=== PATIENT | male | born 1945 | race Hispanic/Latino ===

== ENCOUNTER 2021-09-21 11:32 | Inpatient (IN) | payer MEDICARE, OTHER ==
[2021-09-21 12:16] LABS: #Eosinphils 0.1 thou/uL (0.0-0.7); #Lymphocytes 2.4 thou/uL (1.20-3.40); #Monocytes 0.5 thou/uL (0.11-0.59); #Neutrophils 2.9 thou/uL (1.40-6.50); %Basophils 0.8 % (0.0-1.0); %Eosinophils 2.5 % (0.0-10.0); %Lymphocytes 39.8 % (21.0-51.0); %Monocytes 7.7 % (0.0-10.0); %Neutrophils 49.3 % (42.0-75.0); Mean Corpuscular HGB CONC 34.8 g/dL (32.0-36.0); Mean Corpuscular Hemoglobin 34.4 pg (27.0-31.0); Mean Platelet Volume 6.7 fL (7.4-10.4); Platelet Count 156 thou/uL (130-400); RBC Distribution Width 13.5 % (11.5-14.5); Red Blood Cell (RBC) Count 3.48 mill/uL (4.70-6.10); White Blood Cell (WBC) Count 5.9 thou/uL (4.8-10.8)
[2021-09-21 12:38] LABS: ALT (SGPT) 28 U/L (8-55); AST (SGOT) 26 U/L (5-34); Albumin 3.6 g/dL (3.4-4.8); Alkaline Phosphatase 64 U/L (40-110); Anion Gap 13 mmol/L (10-20); BUN (Urea Nitrogen) 29 mg/dL (8.4-25.7); Bilirubin, Total 0.5 mg/dL (0.2-1.2); Calc. Creatinine Clearance 0 mL/min (70-130); Calcium 8.5 mg/dL (7.8-10.44); Carbon Dioxide 21 mmol/L (23-31); Chloride 107 mmol/L (98-107); Globulin 2.7 g/dL (2.4-3.5); Glucose 104 mg/dL (83-110); Potassium 3.8 mmol/L (3.5-5.1); Protein, Total 6.3 g/dL (5.8-8.1); Sodium 137 mmol/L (136-145)
[2021-09-21] MEDS ORDERED: Meclizine HCl 25 MG TAB ONE (13:07)
[2021-09-21] MEDS ORDERED: Diazepam 5 MG TAB ONE (15:58)
[2021-09-21] MEDS ORDERED: Aspirin 325 MG TAB ONE (15:58)
[2021-09-21 17:30] LABS: Troponin I Less than 0.010 ng/mL (< 0.028)
[2021-09-21] MEDS ORDERED: Dextrose 50% Abboject 50 ML SYRINGE SLOW IVP PRN (19:17)
[2021-09-21] MEDS ORDERED: Dextrose 5% in Water 1,000 ML IV PRN (19:17)
[2021-09-21] MEDS ORDERED: HumaLOG 300 UNITS/3 ML VIAL SC PRN (19:17)
[2021-09-21] MEDS ORDERED: Ondansetron ODT 4 MG TAB PO PRN (19:18)
[2021-09-21] MEDS ORDERED: Acetaminophen 325 MG TAB PO PRN (19:18)
[2021-09-21] MEDS ORDERED: Ondansetron PF 4 MG/2 ML Vial IVP PRN (19:18)
[2021-09-21] MEDS ORDERED: Senokot S 8.6-50 MG TAB PO PRN (19:18)
[2021-09-21 20:53] LABS: Troponin I Less than 0.010 ng/mL (< 0.028)
[2021-09-21] MEDS: Sodium Chloride 0.9% 1,000 ML IV SCH (23:42)
[2021-09-22 01:28] LABS: SARS-CoV-2 NAA Rapid Test DETECTED (NotDetected)
[2021-09-22 02:19] LABS: Bacteria/HPF None Seen HPF (None Seen); Bilirubin Negative (Negative); Blood, Urine Negative (Negative); Clarity Clear (Clear); Glucose, Urine (Dipstick) 500 mg/dL (Negative); Ketone, Urine Negative (Negative); Leukocyte Negative Leu/uL (Negative); Nitrite Negative (Negative); Protein, Urine (Dipstick) 10 mg/dL (Neg-Trace); RBC/HPF 0-3 HPF (0-3); Specific Gravity, Urine 1.018 (1.002-1.036); Squamous Epithelial None Seen HPF (0-3); Urobilinogen Normal mg/dL (Less than 2); WBC/HPF 0-3 HPF (0-3); pH, Urine 6.5 (5.0-9.0)
[2021-09-22 06:13] LABS: #Basophils 0.1 thou/uL (0.0-0.2); #Eosinphils 0.2 thou/uL (0.0-0.7); #Lymphocytes 2.1 thou/uL (1.20-3.40); #Monocytes 0.5 thou/uL (0.11-0.59); #Neutrophils 2.1 thou/uL (1.40-6.50); %Basophils 1.3 % (0.0-1.0); %Eosinophils 3.6 % (0.0-10.0); %Monocytes 9.6 % (0.0-10.0); %Neutrophils 43.4 % (42.0-75.0); Hemoglobin 11.9 g/dL (14.0-18.0); Mean Corpuscular HGB CONC 33.5 g/dL (32.0-36.0); Mean Corpuscular Hemoglobin 33.7 pg (27.0-31.0); Mean Platelet Volume 6.6 fL (7.4-10.4); Platelet Count 141 thou/uL (130-400); RBC Distribution Width 13.6 % (11.5-14.5); Red Blood Cell (RBC) Count 3.54 mill/uL (4.70-6.10); White Blood Cell (WBC) Count 4.9 thou/uL (4.8-10.8)
[2021-09-22 06:24] LABS: Hemoglobin A1c 5.8 % (4.0-6.0)
[2021-09-22 06:41] LABS: Anion Gap 13 mmol/L (10-20); BUN (Urea Nitrogen) 26 mg/dL (8.4-25.7); Calc. Creatinine Clearance 64 mL/min (70-130); Calcium 8.4 mg/dL (7.8-10.44); Carbon Dioxide 22 mmol/L (23-31); Cardiac Risk 5.5 (Less than 4.5); Chloride 108 mmol/L (98-107); Cholesterol 149 mg/dl (< 200 Desired); Glucose 62 mg/dL (83-110); HDL Cholesterol 27 mg/dL (>60 Neg Risk); LDL Cholesterol, Calculated 94 mg/dL; Potassium 3.9 mmol/L (3.5-5.1); Sodium 139 mmol/L (136-145); Triglycerides 138 mg/dL (Less than 150)
[2021-09-22 06:57] LABS: Ferritin 222.61 ng/mL (22-322); Thyroid Stimulating Hormone 0.5144 uIU/mL (0.35-4.94)
[2021-09-22] MEDS: Aspirin 81 mg Enteric Coated Tablet PO SCH (08:58)
[2021-09-22] MEDS: Losartan 25 MG TAB PO SCH (08:58)
[2021-09-22] MEDS: Flecainide 50 MG TAB PO SCH ×2 (08:59→21:11)
[2021-09-22] MEDS: Amlodipine 5 MG TAB PO SCH (08:59)
[2021-09-22] MEDS: Ascorbic Acid 500 mg Chewable Tablet PO SCH (08:59)
[2021-09-22] MEDS: Magnesium Oxide 400 MG TAB PO SCH (08:59)
[2021-09-22] MEDS: Zinc Sulfate 220 MG CAP PO SCH (08:59)
[2021-09-22] MEDS ORDERED: Iopamidol 370 76% 100 ML VIAL ONE (11:41)
[2021-09-22] MEDS: HumaLOG 300 UNITS/3 ML VIAL SC PRN (17:25)
[2021-09-22] MEDS: Sodium Chloride 0.9% 1,000 ML IV SCH (18:29)
[2021-09-22] MEDS: Atorvastatin Calcium 40 MG TAB PO SCH (21:11)
[2021-09-23 06:42] LABS: #Eosinphils 0.2 thou/uL (0.0-0.7); #Lymphocytes 2.3 thou/uL (1.20-3.40); #Monocytes 0.5 thou/uL (0.11-0.59); #Neutrophils 2.3 thou/uL (1.40-6.50); %Basophils 0.9 % (0.0-1.0); %Eosinophils 4.3 % (0.0-10.0); %Lymphocytes 42.4 % (21.0-51.0); %Monocytes 8.8 % (0.0-10.0); %Neutrophils 43.7 % (42.0-75.0); Hemoglobin 12.4 g/dL (14.0-18.0); Mean Corpuscular Hemoglobin 34.3 pg (27.0-31.0); Mean Platelet Volume 7.1 fL (7.4-10.4); Platelet Count 145 thou/uL (130-400); RBC Distribution Width 13.4 % (11.5-14.5); Red Blood Cell (RBC) Count 3.62 mill/uL (4.70-6.10); White Blood Cell (WBC) Count 5.4 thou/uL (4.8-10.8)
[2021-09-23 07:03] LABS: BUN (Urea Nitrogen) 23 mg/dL (8.4-25.7); Calc. Creatinine Clearance 56 mL/min (70-130); Calcium 8.8 mg/dL (7.8-10.44); Carbon Dioxide 22 mmol/L (23-31); Glucose 133 mg/dL (83-110)
[2021-09-23 07:12] LABS: Anion Gap 13 mmol/L (10-20); Chloride 108 mmol/L (98-107); Potassium 4.3 mmol/L (3.5-5.1); Sodium 139 mmol/L (136-145)
[2021-09-23] MEDS: Zinc Sulfate 220 MG CAP PO SCH (08:00)
[2021-09-23] MEDS: Amlodipine 5 MG TAB PO SCH (08:00)
[2021-09-23] MEDS: Losartan 25 MG TAB PO SCH (08:00)
[2021-09-23] MEDS: Flecainide 50 MG TAB PO SCH ×2 (08:00→19:53)
[2021-09-23] MEDS: Magnesium Oxide 400 MG TAB PO SCH (08:00)
[2021-09-23] MEDS: Ascorbic Acid 500 mg Chewable Tablet PO SCH (08:00)
[2021-09-23] MEDS: Aspirin 81 mg Enteric Coated Tablet PO SCH (08:00)
[2021-09-23 09:12] LABS: SARS-CoV-2 PCR by NAA Not Detected (NotDetected)
[2021-09-23] MEDS: HumaLOG 300 UNITS/3 ML VIAL SC PRN ×2 (12:09→17:55)
[2021-09-23] MEDS ORDERED: Magnevist 469MG/ML 20 ML VIAL ONE (12:12)
[2021-09-23] MEDS ORDERED: Clopidogrel Bisulfate 75 MG TAB PO SCH (16:15)
[2021-09-23] MEDS: Atorvastatin Calcium 40 MG TAB PO SCH (19:53)
[2021-09-24] MEDS ORDERED: HYDROmorphone 2 MG/ML VIAL ONE (06:52)
[2021-09-24] MEDS ORDERED: Fentanyl 100 MCG/2 ML VIAL ONE ×2 (06:52→10:44)
[2021-09-24] MEDS ORDERED: Nitroglycerin 50 MG/250 ML BOT 250 ML ONE (06:53)
[2021-09-24] MEDS ORDERED: Phenylephrine 10 MG/ML VIAL ONE (06:53)
[2021-09-24] MEDS ORDERED: Sodium Chloride 0.9% 10 ML ONE (06:53)
[2021-09-24 08:24] VITALS: BP 128/55
[2021-09-24] MEDS ORDERED: Heparin 5,000 UNITS/ML VIAL ONE (08:43)
[2021-09-24] MEDS ORDERED: Bupivacaine 0.25% HCL 30 ML VIAL ONE (08:43)
[2021-09-24] MEDS ORDERED: Protamine Sulfate 50 MG/5 ML VIAL ONE (08:43)
[2021-09-24] MEDS ORDERED: Clopidogrel Bisulfate 75 MG TAB PO SCH (09:00)
[2021-09-24] MEDS: Amlodipine 5 MG TAB PO SCH (09:08)
[2021-09-24] MEDS: Ascorbic Acid 500 mg Chewable Tablet PO SCH (09:08)
[2021-09-24] MEDS: Zinc Sulfate 220 MG CAP PO SCH (09:08)
[2021-09-24] MEDS: Flecainide 50 MG TAB PO SCH ×2 (09:08→20:31)
[2021-09-24] MEDS: Magnesium Oxide 400 MG TAB PO SCH (09:08)
[2021-09-24] MEDS: Aspirin 81 mg Enteric Coated Tablet PO SCH (09:09)
[2021-09-24] MEDS: Losartan 25 MG TAB PO SCH (09:09)
[2021-09-24] MEDS ORDERED: Famotidine/PF 20 mg/2ml Vial ONE (10:44)
[2021-09-24] MEDS ORDERED: EPINEPHrine 1 MG/ML AMP ONE (10:44)
[2021-09-24] MEDS ORDERED: SUGAMMADEX SODIUM 200 MG/2 ML VIAL ONE (11:01)
[2021-09-24] MEDS ORDERED: Lidocaine 1% PF 5 ML VIAL ONE (11:27)
[2021-09-24] MEDS ORDERED: PHENYLEPHRINE-NS 100 MCG/ML 10 ML SYRINGE ONE (11:27)
[2021-09-24] MEDS ORDERED: PROPOFOL 200 MG/20 ML VIAL ONE (11:27)
[2021-09-24] MEDS ORDERED: Ketorolac Tromethamine 30 MG/ML VIAL ONE (11:27)
[2021-09-24] MEDS ORDERED: Metoclopramide HCl 10 MG/2 ML VIAL ONE (11:27)
[2021-09-24] MEDS ORDERED: Ondansetron PF 4 MG/2 ML Vial ONE (11:27)
[2021-09-24] MEDS ORDERED: Rocuronium Bromide 10 MG/ML (10ML VIAL) ONE (11:27)
[2021-09-24] MEDS ORDERED: Heparin 10,000 UNITS/ 10 ML VIAL ONE (12:50)
[2021-09-24] MEDS ORDERED: Ondansetron HCl/PF 4 MG/2 ML Vial IVP PRN (13:29)
[2021-09-24] MEDS ORDERED: Promethazine HCl 25 MG/ML VIAL IM PRN ×2 (13:29→14:18)
[2021-09-24] MEDS ORDERED: Promethazine HCl 25 MG/ML VIAL IVPB PRN (13:29)
[2021-09-24] MEDS ORDERED: Acetaminophen 325 MG TAB PO PRN (14:18)
[2021-09-24] MEDS ORDERED: traMADol HCl 50 MG TAB PO PRN (14:18)
[2021-09-24] MEDS ORDERED: Insulin Regular 300 UNITS/3 ML VIAL SC PRN (14:18)
[2021-09-24] MEDS ORDERED: Fentanyl 100 MCG/2 ML VIAL SLOW IVP PRN ×2 (14:18)
[2021-09-24] MEDS ORDERED: niCARdipine 25 MG in Sodium Chloride 0.9% 250 ML 250 ML IVPB PRN (14:18)
[2021-09-24] MEDS ORDERED: Ondansetron PF 4 MG/2 ML Vial IVP PRN (14:18)
[2021-09-24] MEDS: Sodium Chloride 0.9% 1,000 ML IV SCH (16:50)
[2021-09-24] MEDS: Atorvastatin Calcium 40 MG TAB PO SCH (20:31)
[2021-09-24] MEDS: ceFAZolin 2 GM/Dextrose 50 ML 2 GM in Premix Bag 1 BAG IVPB SCH (20:31)
[2021-09-25] MEDS: Sodium Chloride 0.9% 1,000 ML IV SCH (02:16)
[2021-09-25] MEDS: ceFAZolin 2 GM/Dextrose 50 ML 2 GM in Premix Bag 1 BAG IVPB SCH (04:44)
[2021-09-25 05:46] VITALS: BMI 31.1
[2021-09-25 07:32] VITALS: TEMP 97.6
== END 2021-09-25 07:48 | disposition home or self-care (01) | DRG 37 ==
LOC: ERS 11:32 → NEURO 16:33 → OBSVTOIN 09-22 17:13 → SURG A 09-24 11:21 → CCU 09-24 14:46
PROVIDERS: ADMIT Internal Medicine; ATTEND Internal Medicine
PROC: 8E0ZXY6 Isolation (ICD-10-PCS; 2021-09-22)
PROC: 03CL0ZZ Extirpation of Matter from Left Internal Carotid Artery, Open Approach (ICD-10-PCS; principal; 2021-09-24)
PROC: 03UL0KZ Supplement Left Internal Carotid Artery with Nonautologous Tissue Substitute, Open Approach (ICD-10-PCS; 2021-09-24)
PROC: 3E033XZ Introduction of Vasopressor into Peripheral Vein, Percutaneous Approach (ICD-10-PCS; 2021-09-24)
DX: I65.22 Occlusion and stenosis of left carotid artery (principal); U07.1 COVID-19; I48.20 Chronic atrial fibrillation, unspecified; N17.9 Acute kidney failure, unspecified; I10 Essential (primary) hypertension; I25.10 Atherosclerotic heart disease of native coronary artery without angina pectoris; E78.5 Hyperlipidemia, unspecified; E11.9 Type 2 diabetes mellitus without complications; E29.1 Testicular hypofunction; D50.9 Iron deficiency anemia, unspecified; E78.00 Pure hypercholesterolemia, unspecified; I70.8 Atherosclerosis of other arteries; Z79.4 Long term (current) use of insulin; Z88.8 Allergy status to other drugs, medicaments and biological substances; Z95.5 Presence of coronary angioplasty implant and graft; Z79.82 Long term (current) use of aspirin; Z79.899 Other long term (current) drug therapy
CPT/HCPCS: 36415; 36416; 70450; 70496; 70498; 70549; 70551; 76000; 80048; 80053; 80061; 81001; 82607; 82728; 82746; 83036; 83735; 84443; 84484; 85025; 86140; 93005; 93306; 93880; 94760; 96374; A9579; C1768; C1876; G0378; J0171; J0690; J1170; J1644; J1815; J1885; J2370; J2405; J2704; J2720; J2765; J3010; J3490; J7050; Q9967; S0020; S0028; U0002; U0003; U0005

== ENCOUNTER 2022-07-02 09:45 | Outpatient (CLI) | payer OTHER | END 2022-07-02 09:46 | disposition home or self-care (01) | LOC: ULT 09:45 | PROVIDERS: ATTEND Family Medicine | DX: Z13.6 Encounter for screening for cardiovascular disorders (principal); Z87.891 Personal history of nicotine dependence | CPT/HCPCS: 76775 ==

== ENCOUNTER 2022-09-23 10:40 | Outpatient (CLI) | payer OTHER | END 2022-09-23 10:41 | disposition home or self-care (01) | LOC: MRI 10:40 | PROVIDERS: ATTEND Family Medicine | DX: M23.51 Chronic instability of knee, right knee (principal); M23.8X1 Other internal derangements of right knee; S83.241A Other tear of medial meniscus, current injury, right knee, initial encounter; M25.461 Effusion, right knee; M22.8X1 Other disorders of patella, right knee ==

== ENCOUNTER 2022-11-11 07:56 | Outpatient (CLI) | payer OTHER | END 2022-11-11 07:57 | disposition home or self-care (01) | LOC: LABBT 07:56 | PROVIDERS: ATTEND Thoracic Surgery (Cardiothoracic Vascular Surgery) | DX: Z01.818 Encounter for other preprocedural examination (principal); I25.10 Atherosclerotic heart disease of native coronary artery without angina pectoris; Z95.1 Presence of aortocoronary bypass graft | CPT/HCPCS: 80048; 85027; 86850; 86900; 86901; 93005; 93010 ==

== ENCOUNTER 2022-11-11 08:00 | Inpatient (IN) | payer OTHER ==
[2022-11-11 09:09] LABS: Hemoglobin 15.5 g/dL (13.5-17.5); Mean Corpuscular Hemoglobin 31.6 pg (27.0-33.0); Mean Corpuscular Volume 92.9 fl (81.2-95.1); Platelet Count 267 10x3/uL (150-450); RBC Distribution Width 14.1 % (11.5-14.5); Red Blood Cell (RBC) Count 4.91 10x6/uL (4.32-5.72); White Blood Cell (WBC) Count 6.6 10x3/uL (3.5-10.5)
[2022-11-11 09:39] LABS: Anion Gap 16 mmol/L (10-20); BUN (Urea Nitrogen) 26 mg/dL (8.4-25.7); Calc. Creatinine Clearance 0 mL/min (70-130); Calcium 8.3 mg/dL (7.8-10.44); Carbon Dioxide 24 mmol/L (23-31); Chloride 100 mmol/L (98-107); Estimated GFR 42; Glucose 91 mg/dL (83-110); Potassium 4.5 mmol/L (3.5-5.1); Sodium 135 mmol/L (136-145)
[2022-11-13] MEDS ORDERED: Midazolam HCl 5 mg/5 ml Vial ONE ×2 (06:30→09:33)
[2022-11-13] MEDS ORDERED: Fentanyl 250 MCG/5 ML VIAL ONE (06:30)
[2022-11-13] MEDS ORDERED: Albumin 5% 500 ML ONE ×2 (06:32→11:39)
[2022-11-13] MEDS ORDERED: Heparin 10,000 UNITS/1 ML VIAL 30,000 UNITS in Sodium Chloride 0.9% 1,000 ML FS SCH (06:45)
[2022-11-13] MEDS ORDERED: Lidocaine 1% MPF 2 ML VIAL ONE (06:56)
[2022-11-13 07:13] LABS: SARS-CoV-2 NAA Rapid Test Not Detected (NotDetected)
[2022-11-13] MEDS ORDERED: Sodium Chloride 0.9% 100 ML ONE (07:18)
[2022-11-13] MEDS ORDERED: CEFAZOLIN 2 GM VIAL ONE (07:18)
[2022-11-13] MEDS ORDERED: Papaverine 60 MG/2 ML VIAL ONE (07:28)
[2022-11-13] MEDS ORDERED: DOPamine 400 MG/10 ML VIAL ONE (07:28)
[2022-11-13] MEDS ORDERED: Vecuronium 10 MG VIAL ONE (07:28)
[2022-11-13] MEDS ORDERED: Sodium Bicarb 50 MEQ/50 ML VIAL ONE (07:28)
[2022-11-13] MEDS ORDERED: Lidocaine 2% PF 100 mg/5 ml Syringe ONE (07:28)
[2022-11-13] MEDS ORDERED: Protamine Sulfate 250 MG/25 ML VIAL ONE (07:28)
[2022-11-13] MEDS ORDERED: Aminocaproic Acid 5 GM/20 ML VIAL ONE (07:28)
[2022-11-13] MEDS ORDERED: Heparin 30,000 units/30 ml VIAL ONE (07:28)
[2022-11-13] MEDS ORDERED: Potassium Chloride 60 MEQ/30 ML VIAL ONE (07:28)
[2022-11-13] MEDS ORDERED: Heparin 5,000 UNITS/ML VIAL ONE (07:28)
[2022-11-13] MEDS ORDERED: Vancomycin 1 GM VIAL ONE (07:28)
[2022-11-13] MEDS ORDERED: Cardioplegic Soln 1,000 ML BAG ONE (07:28)
[2022-11-13] MEDS ORDERED: Calcium Chloride 1 GM/10 ML Abboject SYRINGE ONE (07:28)
[2022-11-13] MEDS ORDERED: Thrombin 5000 UNITS/5 ML VIAL ONE (07:28)
[2022-11-13] MEDS ORDERED: Magnesium 5 GM/10 ML VIAL ONE (07:28)
[2022-11-13] MEDS ORDERED: Mannitol 12.5 GM/50 ML ONE (07:28)
[2022-11-13] MEDS ORDERED: Midazolam HCl 2 mg/2 ml Vial ONE (09:32)
[2022-11-13] MEDS ORDERED: Phenylephrine 10 MG/ML VIAL ONE (09:40)
[2022-11-13] MEDS ORDERED: PHENYLEPHRINE-NS 100 MCG/ML 10 ML SYRINGE ONE (09:41)
[2022-11-13 11:37] LABS: Actual Bicarbonate (HCO3a) 20.3 mEq/L (22-28); Base Excess (BEa) -3.2 mEq/L (-2.0 to +3.0); CO2 Tension 31.9 mmHg (35.0-45.0); Calcium, Ionized (arterial) 1.11 mmol/L (1.12-1.30); Carboxyhemoglobin (COHb) 0.6 gm% (0.0-3.0); Hemoglobin (Hb) 13.1 g/dL (14.0-18.0); O2 Tension (PaO2), arterial 116.4 mmHg (> 70.0); Potassium - ABG Lab 5.31 mmol/L (3.70-5.30); pH, Arterial 7.42 (7.35-7.45)
[2022-11-13] MEDS ORDERED: Insulin Regular 300 UNITS/3 ML VIAL ONE (11:39)
[2022-11-13 11:40] LABS: ALV-art Gradient 200.225 mmHg (0-20); Puncture Site Arterial Line
[2022-11-13] MEDS ORDERED: Potassium Chloride 20 MEQ/100 ML PREMIX BAG IVPB PRN (11:48)
[2022-11-13] MEDS ORDERED: Ipratropium/Albuterol 3 ML NEB NEB PRN (11:48)
[2022-11-13] MEDS ORDERED: Hetastarch 6% 500 ML 500 ML IVPB PRN (11:48)
[2022-11-13] MEDS ORDERED: Post-Op Insulin Drip Protocol IVPB ONE (11:48)
[2022-11-13] MEDS ORDERED: Bisacodyl 10 MG SUPP PR PRN (11:48)
[2022-11-13] MEDS ORDERED: Bisacodyl 5 MG TAB PO PRN (11:48)
[2022-11-13] MEDS ORDERED: Morphine 2 MG/ML VIAL SLOW IVP PRN (11:48)
[2022-11-13] MEDS ORDERED: HYDROcodone/Acetaminophen 5/325 mg Tablet PO PRN (11:48)
[2022-11-13] MEDS ORDERED: Fentanyl 100 MCG/2 ML VIAL SLOW IVP PRN ×2 (11:48)
[2022-11-13] MEDS ORDERED: niCARdipine 25 MG in Sodium Chloride 0.9% 250 ML 250 ML IVPB PRN (11:48)
[2022-11-13] MEDS ORDERED: Mag-Al 1200 mg/1200 mg/30 ML UDCUP PO PRN (11:48)
[2022-11-13] MEDS ORDERED: Acetaminophen 325 MG TAB PO PRN (11:48)
[2022-11-13] MEDS ORDERED: NOREPINEPHRINE 8 MG/250 ML-D5W 250 ML IVPB PRN (11:48)
[2022-11-13] MEDS ORDERED: Guaifenesin DM 100-10/5 ML UDCUP PO PRN (11:48)
[2022-11-13] MEDS ORDERED: Ondansetron PF 4 MG/2 ML Vial IVP PRN (11:48)
[2022-11-13] MEDS ORDERED: hydrALAZINE 20 MG/ML VIAL SLOW IVP PRN (11:48)
[2022-11-13 11:58] LABS: #Eosinphils 0.1 thou/uL (0.0-0.7); #Lymphocytes 1.5 thou/uL (1.20-3.40); #Monocytes 0.7 thou/uL (0.11-0.59); #Neutrophils 8.1 thou/uL (1.40-6.50); %Basophils 0.3 % (0.0-1.0); %Eosinophils 1.2 % (0.0-10.0); %Lymphocytes 14.2 % (21.0-51.0); %Monocytes 6.5 % (0.0-10.0); %Neutrophils 77.8 % (42.0-75.0); Hemoglobin 12.6 g/dL (14.0-18.0); Mean Corpuscular HGB CONC 33.8 g/dL (32.0-36.0); Mean Corpuscular Hemoglobin 33.4 pg (27.0-31.0); Mean Corpuscular Volume 98.7 fl (78.0-98.0); Mean Platelet Volume 7.2 fL (7.4-10.4); Platelet Count 156 10x3/uL (130-400); RBC Distribution Width 13.1 % (11.5-14.5); Red Blood Cell (RBC) Count 3.76 mill/uL (4.70-6.10); White Blood Cell (WBC) Count 10.4 10x3/uL (4.8-10.8)
[2022-11-13] MEDS ORDERED: Insulin Regular 300 UNITS/3 ML VIAL SC PRN (12:00)
[2022-11-13] MEDS ORDERED: Dextrose 50% Abboject 50 ML SYRINGE SLOW IVP PRN (12:00)
[2022-11-13] MEDS ORDERED: HUMULIN R 100 UNITS in Sodium Chloride 0.9% 100 ML IVPB SCH (12:00)
[2022-11-13] MEDS ORDERED: Dextrose 5% in Water 1,000 ML IV PRN (12:00)
[2022-11-13] MEDS: Lactated Ringer's 1,000 ML IV SCH (12:03)
[2022-11-13] MEDS: Ketorolac Tromethamine 30 MG/ML VIAL IVP SCH ×3 (12:05→23:12)
[2022-11-13 12:09] LABS: INR-International Normal Ratio 1.5; PTT 33.5 sec (22.9-36.1); Prothrombin Time 18.4 sec (12.0-14.7)
[2022-11-13 12:15] LABS: Anion Gap 12 mmol/L (10-20); BUN (Urea Nitrogen) 30 mg/dL (8.4-25.7); Calc. Creatinine Clearance 44 mL/min (70-130); Calcium 7.7 mg/dL (7.8-10.44); Carbon Dioxide 18 mmol/L (23-31); Chloride 108 mmol/L (98-107); Estimated GFR 40; Glucose 184 mg/dL (83-110); Potassium 5.3 mmol/L (3.5-5.1); Sodium 133 mmol/L (136-145)
[2022-11-13] MEDS: CEFAZOLIN 2 GM in Sodium Chloride 0.9% 100 ML IVPB SCH ×2 (16:49→23:14)
[2022-11-13 17:34] LABS: Base Excess (BEa) -3.8 mEq/L (-2.0 to +3.0); CO2 Tension 37.4 mmHg (35.0-45.0); Calcium, Ionized (arterial) 1.12 mmol/L (1.12-1.30); Carboxyhemoglobin (COHb) 0.6 gm% (0.0-3.0); Hemoglobin (Hb) 13.5 g/dL (14.0-18.0); O2 Tension (PaO2), arterial 169.9 mmHg (> 70.0); Potassium - ABG Lab 3.67 mmol/L (3.70-5.30); Puncture Site Arterial Line; pH, Arterial 7.37 (7.35-7.45)
[2022-11-13 18:04] LABS: Potassium 3.8 mmol/L (3.5-5.1)
[2022-11-13] MEDS: Atorvastatin Calcium 20 MG TAB PO SCH (21:47)
[2022-11-13] MEDS: Famotidine/PF 20 mg/2ml Vial SLOW IVP SCH (21:47)
[2022-11-13] MEDS: HYDROcodone/Acetaminophen 5/325 mg Tablet PO PRN (22:26)
[2022-11-14 03:39] LABS: #Lymphocytes 0.9 thou/uL (1.20-3.40); #Monocytes 0.6 thou/uL (0.11-0.59); #Neutrophils 9.4 thou/uL (1.40-6.50); %Basophils 0.4 % (0.0-1.0); %Eosinophils 0.3 % (0.0-10.0); %Lymphocytes 8.3 % (21.0-51.0); %Monocytes 5.8 % (0.0-10.0); %Neutrophils 85.3 % (42.0-75.0); Hemoglobin 13.4 g/dL (14.0-18.0); Mean Corpuscular HGB CONC 33.2 g/dL (32.0-36.0); Mean Corpuscular Hemoglobin 32.9 pg (27.0-31.0); Mean Platelet Volume 6.9 fL (7.4-10.4); Platelet Count 153 10x3/uL (130-400); RBC Distribution Width 13.3 % (11.5-14.5); Red Blood Cell (RBC) Count 4.07 mill/uL (4.70-6.10)
[2022-11-14 04:02] LABS: Anion Gap 13 mmol/L (10-20); BUN (Urea Nitrogen) 22 mg/dL (8.4-25.7); Calc. Creatinine Clearance 63 mL/min (70-130); Carbon Dioxide 20 mmol/L (23-31); Chloride 109 mmol/L (98-107); Estimated GFR 62; Glucose 106 mg/dL (83-110); Potassium 5.3 mmol/L (3.5-5.1); Sodium 137 mmol/L (136-145)
[2022-11-14] MEDS: Ketorolac Tromethamine 30 MG/ML VIAL IVP SCH ×4 (06:12→23:53)
[2022-11-14] MEDS: Famotidine/PF 20 mg/2ml Vial SLOW IVP SCH (07:52)
[2022-11-14] MEDS: CEFAZOLIN 2 GM in Sodium Chloride 0.9% 100 ML IVPB SCH (07:52)
[2022-11-14] MEDS: Magnesium 2 GM/50 ML(in water) 2 GM in Premix Bag 1 BAG IVPB SCH (07:52)
[2022-11-14] MEDS: Aspirin 325 MG TAB PO SCH (07:53)
[2022-11-14] MEDS: Lactated Ringer's 1,000 ML IV SCH (07:53)
[2022-11-14] MEDS ORDERED: Dextrose 50% Abboject 50 ML SYRINGE SLOW IVP PRN (11:54)
[2022-11-14] MEDS ORDERED: Dextrose 5% in Water 1,000 ML IV PRN (11:54)
[2022-11-14] MEDS ORDERED: Insulin Glargine 30 UNITS/0.3 ML VIAL SC PRN (11:56)
[2022-11-14 12:15] VITALS: BMI 29.3
[2022-11-14] MEDS: Insulin Regular 300 UNITS/3 ML VIAL SC PRN ×2 (14:37→18:24)
[2022-11-14] MEDS ORDERED: Insulin Glargine 30 UNITS/0.3 ML VIAL SC SCH (21:00)
[2022-11-14] MEDS: Atorvastatin Calcium 20 MG TAB PO SCH ×2 (21:53→22:25)
[2022-11-14] MEDS: HYDROcodone/Acetaminophen 5/325 mg Tablet PO PRN (23:51)
[2022-11-15 04:35] LABS: #Basophils 0.1 thou/uL (0.0-0.2); #Eosinphils 0.2 thou/uL (0.0-0.7); #Lymphocytes 1.6 thou/uL (1.20-3.40); #Monocytes 0.9 thou/uL (0.11-0.59); #Neutrophils 7.7 thou/uL (1.40-6.50); %Basophils 1.1 % (0.0-1.0); %Eosinophils 1.6 % (0.0-10.0); %Lymphocytes 14.9 % (21.0-51.0); %Monocytes 8.8 % (0.0-10.0); %Neutrophils 73.6 % (42.0-75.0); Hemoglobin 12.3 g/dL (14.0-18.0); Mean Corpuscular HGB CONC 33.7 g/dL (32.0-36.0); Mean Corpuscular Hemoglobin 33.4 pg (27.0-31.0); Mean Corpuscular Volume 99.2 fl (78.0-98.0); Mean Platelet Volume 7.5 fL (7.4-10.4); Platelet Count 150 10x3/uL (130-400); RBC Distribution Width 13.1 % (11.5-14.5); Red Blood Cell (RBC) Count 3.69 mill/uL (4.70-6.10); White Blood Cell (WBC) Count 10.4 10x3/uL (4.8-10.8)
[2022-11-15 05:00] LABS: Anion Gap 12 mmol/L (10-20); BUN (Urea Nitrogen) 30 mg/dL (8.4-25.7); Calc. Creatinine Clearance 45 mL/min (70-130); Calcium 7.6 mg/dL (7.8-10.44); Carbon Dioxide 22 mmol/L (23-31); Chloride 104 mmol/L (98-107); Estimated GFR 42; Glucose 101 mg/dL (83-110); Potassium 4.7 mmol/L (3.5-5.1); Sodium 133 mmol/L (136-145)
[2022-11-15] MEDS: Ketorolac Tromethamine 30 MG/ML VIAL IVP SCH (06:19)
[2022-11-15] MEDS ORDERED: Nitroglycerin 0.4 MG TAB (25 Tab Bottle) SL PRN (07:18)
[2022-11-15] MEDS ORDERED: Guaifenesin DM 100-10/5 ML UDCUP PO PRN (07:18)
[2022-11-15] MEDS ORDERED: Dextrose 50% Abboject 50 ML SYRINGE SLOW IVP PRN (07:30)
[2022-11-15] MEDS ORDERED: HUMULIN R 100 UNITS in Sodium Chloride 0.9% 100 ML IVPB SCH (07:30)
[2022-11-15] MEDS ORDERED: Insulin Regular 300 UNITS/3 ML VIAL SC PRN (07:30)
[2022-11-15] MEDS ORDERED: Dextrose 5% in Water 1,000 ML IV PRN (07:30)
[2022-11-15] MEDS: Famotidine 20 MG TAB PO SCH (08:59)
[2022-11-15] MEDS: Aspirin 325 MG TAB PO SCH (08:59)
[2022-11-15] MEDS: Polyethylene Glycol 3350 17 GM Packet PO SCH (09:00)
[2022-11-15] MEDS: Magnesium 2 GM/50 ML(in water) 2 GM in Premix Bag 1 BAG IVPB SCH (09:00)
[2022-11-15] MEDS ORDERED: Famotidine/PF 20 mg/2ml Vial SLOW IVP SCH (09:00)
[2022-11-15] MEDS: Insulin Glargine 30 UNITS/0.3 ML VIAL SC SCH ×2 (09:00→21:39)
[2022-11-15] MEDS: HYDROcodone/Acetaminophen 5/325 mg Tablet PO PRN (21:38)
[2022-11-15] MEDS: Atorvastatin Calcium 20 MG TAB PO SCH (21:38)
[2022-11-16 05:38] LABS: #Eosinphils 0.2 thou/uL (0.0-0.7); #Lymphocytes 1.6 thou/uL (1.20-3.40); #Monocytes 1.1 thou/uL (0.11-0.59); #Neutrophils 7.4 thou/uL (1.40-6.50); %Basophils 0.4 % (0.0-1.0); %Eosinophils 1.6 % (0.0-10.0); %Lymphocytes 15.5 % (21.0-51.0); %Monocytes 10.7 % (0.0-10.0); %Neutrophils 71.9 % (42.0-75.0); Hemoglobin 11.9 g/dL (14.0-18.0); Mean Corpuscular HGB CONC 33.1 g/dL (32.0-36.0); Mean Corpuscular Volume 99.6 fl (78.0-98.0); Platelet Count 141 10x3/uL (130-400); RBC Distribution Width 13.3 % (11.5-14.5); Red Blood Cell (RBC) Count 3.62 mill/uL (4.70-6.10); White Blood Cell (WBC) Count 10.3 10x3/uL (4.8-10.8)
[2022-11-16 06:03] LABS: Anion Gap 10 mmol/L (10-20); BUN (Urea Nitrogen) 37 mg/dL (8.4-25.7); Calc. Creatinine Clearance 46 mL/min (70-130); Calcium 7.6 mg/dL (7.8-10.44); Carbon Dioxide 24 mmol/L (23-31); Chloride 104 mmol/L (98-107); Estimated GFR 42; Glucose 105 mg/dL (83-110); Potassium 5.2 mmol/L (3.5-5.1); Sodium 133 mmol/L (136-145)
[2022-11-16] MEDS ORDERED: Insulin Glargine 30 UNITS/0.3 ML VIAL SC PRN (07:26)
[2022-11-16] MEDS: Polyethylene Glycol 3350 17 GM Packet PO SCH (08:31)
[2022-11-16] MEDS: Famotidine 20 MG TAB PO SCH (08:31)
[2022-11-16] MEDS: Aspirin 325 MG TAB PO SCH (08:31)
[2022-11-16] MEDS: Insulin Glargine 30 UNITS/0.3 ML VIAL SC SCH ×2 (08:31→21:08)
[2022-11-16 14:52] LABS: Actual Bicarbonate (HCO3v) 22 mEq/L (22-28); Analyzer IN Cardio OR; Base Excess -3.9 mEq/L (-2.0 to +3.0); Calcium, Ionized (venous) 0.99 mmol/L (1.16-1.32); Chloride (VBG) 102 mmol/L (98-106); Hemoglobin (Hb) 10.5 g/dL (12.6-17.4); Potassium (VBG) 5.31 mmol/L (3.70-5.30); Sodium 132.8 mmol/L (133-146); pH (venous) 7.33 (7.32-7.43)
[2022-11-16 14:52] LABS: Actual Bicarbonate (HCO3a) 18.2 mEq/L (22-28); Analyzer IN Cardio OR; Base Excess (BEa) -6.4 mEq/L (-2.0 to +3.0); CO2 Tension 32.5 mmHg (35.0-45.0); Calcium, Ionized (arterial) 1.14 mmol/L (1.12-1.30); Carboxyhemoglobin (COHb) 0.3 gm% (0.0-3.0); Hemoglobin (Hb) 10.3 g/dL (14.0-18.0); O2 Tension (PaO2), arterial 376.1 mmHg (> 70.0); Potassium - ABG Lab 5.37 mmol/L (3.70-5.30); pH, Arterial 7.37 (7.35-7.45)
[2022-11-16 14:52] LABS: Actual Bicarbonate (HCO3a) 20.2 mEq/L (22-28); Analyzer IN Cardio OR; CO2 Tension 33.7 mmHg (35.0-45.0); Calcium, Ionized (arterial) 0.96 mmol/L (1.12-1.30); Carboxyhemoglobin (COHb) 0.2 gm% (0.0-3.0); Hemoglobin (Hb) 10.5 g/dL (14.0-18.0); O2 Tension (PaO2), arterial 377.2 mmHg (> 70.0); Potassium - ABG Lab 5.27 mmol/L (3.70-5.30)
[2022-11-16 14:52] LABS: Actual Bicarbonate (HCO3a) 21.1 mEq/L (22-28); Analyzer IN Cardio OR; Base Excess (BEa) -4.9 mEq/L (-2.0 to +3.0); CO2 Tension 42.6 mmHg (35.0-45.0); Calcium, Ionized (arterial) 0.97 mmol/L (1.12-1.30); Carboxyhemoglobin (COHb) 0.1 gm% (0.0-3.0); Hemoglobin (Hb) 10.1 g/dL (14.0-18.0); O2 Tension (PaO2), arterial 436.4 mmHg (> 70.0); Potassium - ABG Lab 5.85 mmol/L (3.70-5.30); pH, Arterial 7.31 (7.35-7.45)
[2022-11-16 14:53] LABS: Actual Bicarbonate (HCO3a) 19.9 mEq/L (22-28); Analyzer IN Cardio OR; Base Excess (BEa) -4.1 mEq/L (-2.0 to +3.0); CO2 Tension 33.1 mmHg (35.0-45.0); Calcium, Ionized (arterial) 1.02 mmol/L (1.12-1.30); Carboxyhemoglobin (COHb) 0.7 gm% (0.0-3.0); Hemoglobin (Hb) 13.1 g/dL (14.0-18.0); O2 Tension (PaO2), arterial 430.3 mmHg (> 70.0); Potassium - ABG Lab 4.37 mmol/L (3.70-5.30)
[2022-11-16 14:53] LABS: Analyzer IN Cardio OR; Base Excess (BEa) -5.1 mEq/L (-2.0 to +3.0); Calcium, Ionized (arterial) 1.11 mmol/L (1.12-1.30); Carboxyhemoglobin (COHb) 0.5 gm% (0.0-3.0); Hemoglobin (Hb) 14.8 g/dL (14.0-18.0); O2 Tension (PaO2), arterial 419.7 mmHg (> 70.0); Puncture Site Arterial Line; pH, Arterial 7.38 (7.35-7.45)
[2022-11-16 14:54] LABS: Puncture Site Arterial Line
[2022-11-16 14:54] LABS: Puncture Site Arterial Line
[2022-11-16 14:55] LABS: Puncture Site Arterial Line
[2022-11-16 14:55] LABS: Puncture Site Arterial Line
[2022-11-16] MEDS: GUAIFENESIN SF SOLN 200 MG/10 ML UDCUP PO PRN ×2 (17:45→21:44)
[2022-11-16] MEDS ORDERED: Loratadine 10 MG TAB PO PRN (18:55)
[2022-11-16] MEDS ORDERED: Furosemide 40 MG TAB PO SCH (19:00)
[2022-11-16] MEDS: Benzonatate 100 MG CAP PO PRN (19:42)
[2022-11-16] MEDS: Fluticasone Propionate Nasal Spray 16 gm Bottle NASAL SCH (21:07)
[2022-11-16] MEDS: Atorvastatin Calcium 20 MG TAB PO SCH (21:07)
[2022-11-17 05:20] LABS: #Basophils 0.3 thou/uL (0.0-0.2); #Eosinphils 0.1 thou/uL (0.0-0.7); #Lymphocytes 1.2 thou/uL (1.20-3.40); #Monocytes 1.1 thou/uL (0.11-0.59); #Neutrophils 7.7 thou/uL (1.40-6.50); %Basophils 2.6 % (0.0-1.0); %Eosinophils 0.9 % (0.0-10.0); %Lymphocytes 11.6 % (21.0-51.0); %Monocytes 10.4 % (0.0-10.0); %Neutrophils 74.4 % (42.0-75.0); Hemoglobin 12.3 g/dL (14.0-18.0); Mean Corpuscular HGB CONC 33.8 g/dL (32.0-36.0); Mean Corpuscular Hemoglobin 33.6 pg (27.0-31.0); Mean Corpuscular Volume 99.4 fl (78.0-98.0); Mean Platelet Volume 7.9 fL (7.4-10.4); Platelet Count 166 10x3/uL (130-400); RBC Distribution Width 13.3 % (11.5-14.5); Red Blood Cell (RBC) Count 3.68 mill/uL (4.70-6.10); White Blood Cell (WBC) Count 10.4 10x3/uL (4.8-10.8)
[2022-11-17 05:51] LABS: Anion Gap 10 mmol/L (10-20); BUN (Urea Nitrogen) 30 mg/dL (8.4-25.7); Calc. Creatinine Clearance 59 mL/min (70-130); Carbon Dioxide 27 mmol/L (23-31); Chloride 102 mmol/L (98-107); Estimated GFR 56; Potassium 4.4 mmol/L (3.5-5.1); Sodium 135 mmol/L (136-145)
[2022-11-17 05:55] LABS: Glucose 52 mg/dL (83-110)
[2022-11-17] MEDS: GUAIFENESIN SF SOLN 200 MG/10 ML UDCUP PO PRN ×2 (06:35→10:31)
[2022-11-17] MEDS: Famotidine 20 MG TAB PO SCH (08:08)
[2022-11-17] MEDS: Benzonatate 100 MG CAP PO PRN ×4 (08:08→21:46)
[2022-11-17] MEDS: Torsemide 20 MG TAB PO SCH (08:08)
[2022-11-17] MEDS: Aspirin 325 MG TAB PO SCH (08:08)
[2022-11-17] MEDS: Insulin Glargine 30 UNITS/0.3 ML VIAL SC SCH ×2 (08:09→21:47)
[2022-11-17] MEDS: Polyethylene Glycol 3350 17 GM Packet PO SCH (08:13)
[2022-11-17 09:24] LABS: Anion Gap 10 mmol/L (10-20); BUN (Urea Nitrogen) 29 mg/dL (8.4-25.7); Calc. Creatinine Clearance 59 mL/min (70-130); Carbon Dioxide 28 mmol/L (23-31); Chloride 100 mmol/L (98-107); Estimated GFR 57; Glucose 159 mg/dL (83-110); Potassium 4.8 mmol/L (3.5-5.1); Sodium 133 mmol/L (136-145)
[2022-11-17] MEDS: Insulin Regular 300 UNITS/3 ML VIAL SC PRN ×2 (12:04→17:11)
[2022-11-17 12:32] LABS: Glucose 197 mg/dL (83-110)
[2022-11-17 17:17] LABS: Glucose 199 mg/dL (83-110)
[2022-11-17 21:30] LABS: Glucose 134 mg/dL (83-110)
[2022-11-17] MEDS: Atorvastatin Calcium 20 MG TAB PO SCH (21:46)
[2022-11-17] MEDS: Fluticasone Propionate Nasal Spray 16 gm Bottle NASAL SCH ×2 (21:47→21:49)
[2022-11-18] MEDS: Benzonatate 100 MG CAP PO PRN ×2 (06:36→23:59)
[2022-11-18 07:29] LABS: Glucose 80 mg/dL (83-110)
[2022-11-18] MEDS: Polyethylene Glycol 3350 17 GM Packet PO SCH (09:07)
[2022-11-18] MEDS: Aspirin 325 MG TAB PO SCH ×2 (09:07→09:12)
[2022-11-18] MEDS: Torsemide 20 MG TAB PO SCH (09:07)
[2022-11-18] MEDS: Famotidine 20 MG TAB PO SCH (09:08)
[2022-11-18] MEDS: Metoprolol Tartrate 25 MG TAB PO SCH ×2 (09:08→23:59)
[2022-11-18] MEDS: Insulin Glargine 30 UNITS/0.3 ML VIAL SC SCH (09:13)
[2022-11-18 11:44] LABS: Glucose 149 mg/dL (83-110)
[2022-11-18] MEDS: Insulin Regular 300 UNITS/3 ML VIAL SC PRN (12:43)
[2022-11-18] MEDS: Atorvastatin Calcium 20 MG TAB PO SCH (23:59)
[2022-11-19] MEDS: Fluticasone Propionate Nasal Spray 16 gm Bottle NASAL SCH (02:34)
[2022-11-19] MEDS: Insulin Glargine 30 UNITS/0.3 ML VIAL SC SCH ×2 (02:34→08:24)
[2022-11-19 08:05] VITALS: BP 103/56; TEMP 97.4
[2022-11-19] MEDS: Torsemide 20 MG TAB PO SCH (08:10)
[2022-11-19] MEDS: Aspirin 325 MG TAB PO SCH (08:21)
[2022-11-19] MEDS: Famotidine 20 MG TAB PO SCH (08:22)
[2022-11-19] MEDS: Polyethylene Glycol 3350 17 GM Packet PO SCH (08:23)
[2022-11-19] MEDS: Metoprolol Tartrate 25 MG TAB PO SCH (08:26)
== END 2022-11-19 11:48 | disposition home or self-care (01) | DRG 234 ==
LOC: SURG A 11-13 05:46 → CCU 11-13 10:33 → 2NO 11-15 08:38
PROVIDERS: ADMIT Thoracic Surgery (Cardiothoracic Vascular Surgery); ATTEND Thoracic Surgery (Cardiothoracic Vascular Surgery)
PROC: 021209W Bypass Coronary Artery, Three Arteries from Aorta with Autologous Venous Tissue, Open Approach (ICD-10-PCS; principal; 2022-11-13)
PROC: 02580ZZ Destruction of Conduction Mechanism, Open Approach (ICD-10-PCS; 2022-11-13)
PROC: 02100Z9 Bypass Coronary Artery, One Artery from Left Internal Mammary, Open Approach (ICD-10-PCS; 2022-11-13)
PROC: 06BQ3ZZ Excision of Left Saphenous Vein, Percutaneous Approach (ICD-10-PCS; 2022-11-13)
PROC: 5A1221Z Performance of Cardiac Output, Continuous (ICD-10-PCS; 2022-11-13)
PROC: 02L70DK Occlusion of Left Atrial Appendage with Intraluminal Device, Open Approach (ICD-10-PCS; 2022-11-13)
DX: I25.10 Atherosclerotic heart disease of native coronary artery without angina pectoris (principal); Z20.822 Contact with and (suspected) exposure to COVID-19; I48.0 Paroxysmal atrial fibrillation; I49.5 Sick sinus syndrome; E78.5 Hyperlipidemia, unspecified; I10 Essential (primary) hypertension; I65.22 Occlusion and stenosis of left carotid artery; I44.0 Atrioventricular block, first degree; E11.51 Type 2 diabetes mellitus with diabetic peripheral angiopathy without gangrene; I49.1 Atrial premature depolarization; Z95.1 Presence of aortocoronary bypass graft; Z79.01 Long term (current) use of anticoagulants; Z79.82 Long term (current) use of aspirin; Z79.899 Other long term (current) drug therapy; Z95.5 Presence of coronary angioplasty implant and graft; Z82.49 Family history of ischemic heart disease and other diseases of the circulatory system; Z87.891 Personal history of nicotine dependence; Z88.8 Allergy status to other drugs, medicaments and biological substances; Z98.52 Vasectomy status; Z79.02 Long term (current) use of antithrombotics/antiplatelets; Z79.4 Long term (current) use of insulin
CPT/HCPCS: 36415; 36416; 36430; 71045; 80048; 82805; 82947; 85025; 85027; 85610; 85730; 86850; 86900; 86901; 86921; 93005; 93010; 93798; 94002; C1713; C1751; C1776; J1265; J1642; J1644; J1815; J1885; J2001; J2150; J2250; J2370; J2405; J2440; J2720; J3010; J3370; J3475; J3480; J3490; J7120; P9045; S0017; S0028; U0002

== ENCOUNTER 2022-12-30 13:16 | Outpatient (CLI) | payer OTHER ==
[2022-12-30 14:26] LABS: #Eosinphils 0.1 10x3/uL (0.0-0.5); #Monocytes 0.5 10x3/uL (0.0-1.1); %Basophils 0.8 % (0.0-2.0); %Eosinophils 2.4 % (0.0-6.0); %Lymphocytes 26.3 % (18.0-47.0); %Monocytes 10.3 % (0.0-10.0); Hemoglobin 12.8 g/dL (13.5-17.5); Mean Corpuscular HGB CONC 32.2 g/dL (32.0-36.0); Mean Corpuscular Hemoglobin 29.8 pg (27.0-33.0); Mean Corpuscular Volume 92.8 fl (81.2-95.1); Mean Platelet Volume 8.8 fl (7.4-10.4); Platelet Count 176 10x3/uL (150-450); RBC Distribution Width 15.6 % (11.5-14.5); Red Blood Cell (RBC) Count 4.29 10x6/uL (4.32-5.72); White Blood Cell (WBC) Count 4.9 10x3/uL (3.5-10.5)
[2022-12-30 14:51] LABS: Anion Gap 15 mmol/L (10-20); BUN (Urea Nitrogen) 17 mg/dL (8.4-25.7); Calc. Creatinine Clearance 0 mL/min (70-130); Calcium 8.3 mg/dL (7.8-10.44); Carbon Dioxide 25 mmol/L (23-31); Chloride 104 mmol/L (98-107); Estimated GFR 53; Glucose 142 mg/dL (83-110); Sodium 139 mmol/L (136-145)
== END 2022-12-30 13:17 | disposition home or self-care (01) ==
LOC: LABBT 13:16
PROVIDERS: ATTEND Internal Medicine Cardiovascular Disease
DX: Z01.812 Encounter for preprocedural laboratory examination (principal); I48.0 Paroxysmal atrial fibrillation
CPT/HCPCS: 80048; 85025

== ENCOUNTER 2023-01-01 05:52 | Day surgery (SDC) | payer OTHER ==
[2022-12-30 14:38] VITALS: BMI 28.6
[2023-01-01] MEDS ORDERED: PROPOFOL 20 ML ONE (07:11)
== END 2023-01-01 08:36 | disposition home or self-care (01) ==
LOC: SDC 05:52
PROVIDERS: ATTEND Internal Medicine Cardiovascular Disease
PROC: 5A2204Z Restoration of Cardiac Rhythm, Single (ICD-10-PCS; principal; 2023-01-01)
DX: I48.0 Paroxysmal atrial fibrillation (principal); I25.10 Atherosclerotic heart disease of native coronary artery without angina pectoris; I73.9 Peripheral vascular disease, unspecified; I65.23 Occlusion and stenosis of bilateral carotid arteries; I10 Essential (primary) hypertension; Z87.891 Personal history of nicotine dependence; Z79.4 Long term (current) use of insulin; Z79.811 Long term (current) use of aromatase inhibitors; Z79.82 Long term (current) use of aspirin; Z79.899 Other long term (current) drug therapy; Z88.8 Allergy status to other drugs, medicaments and biological substances; Z95.1 Presence of aortocoronary bypass graft; Z95.5 Presence of coronary angioplasty implant and graft; Z98.890 Other specified postprocedural states
CPT/HCPCS: 92960; J2704

== ENCOUNTER 2023-03-29 06:14 | Day surgery (SDC) | payer OTHER ==
[2023-03-24 10:40] VITALS: BMI 29.0
[2023-03-24 10:55] LABS: Hemoglobin 15.3 g/dL (13.5-17.5); Mean Corpuscular Hemoglobin 29.6 pg (27.0-33.0); Mean Corpuscular Volume 89.7 fl (81.2-95.1); Platelet Count 181 10x3/uL (150-450); RBC Distribution Width 18.3 % (11.5-14.5); Red Blood Cell (RBC) Count 5.17 10x6/uL (4.32-5.72); White Blood Cell (WBC) Count 5.9 10x3/uL (3.5-10.5)
[2023-03-24 11:31] LABS: Anion Gap 12 mmol/L (10-20); BUN (Urea Nitrogen) 18 mg/dL (8.4-25.7); Calc. Creatinine Clearance 51 mL/min (70-130); Calcium 9.2 mg/dL (7.8-10.44); Carbon Dioxide 29 mmol/L (23-31); Chloride 103 mmol/L (98-107); Estimated GFR 49; Glucose 107 mg/dL (83-110); Potassium 5.5 mmol/L (3.5-5.1); Sodium 138 mmol/L (136-145)
[2023-03-29] MEDS ORDERED: Heparin 10,000 UNITS/ 10 ML VIAL ONE ×2 (06:44→06:45)
[2023-03-29] MEDS ORDERED: Heparin 25,000 units/D5W 500 ML ONE (06:45)
[2023-03-29] MEDS ORDERED: Isoproterenol 0.2 MG/1 ML AMP ONE (06:45)
[2023-03-29] MEDS ORDERED: fentaNYL 50 mcg/mL 1 mL Vial ONE ×2 (07:52→12:57)
[2023-03-29] MEDS ORDERED: Rocuronium Bromide 10 MG/ML (10ML VIAL) ONE (07:55)
[2023-03-29] MEDS ORDERED: diphenhydrAMINE 50 MG/ML VIAL ONE (07:55)
[2023-03-29] MEDS ORDERED: PROPOFOL 200 MG/20 ML VIAL ONE (07:55)
[2023-03-29] MEDS ORDERED: PHENYLEPHRINE-NS 100 MCG/ML 10 ML SYRINGE ONE (07:55)
[2023-03-29] MEDS ORDERED: Promethazine HCl 25 MG/ML VIAL IM PRN (09:12)
[2023-03-29] MEDS ORDERED: Ondansetron HCl/PF 4 MG/2 ML Vial IVP PRN (09:12)
[2023-03-29] MEDS ORDERED: HYDROmorphone 2 MG/ML VIAL SLOW IVP PRN (09:12)
[2023-03-29] MEDS ORDERED: Protamine Sulfate 50 MG/5 ML VIAL ONE (09:58)
[2023-03-29] MEDS ORDERED: PROPOFOL 20 ML ONE (11:02)
[2023-03-29] MEDS ORDERED: Acetaminophen/Codeine 30-300mg Tablet ONE (16:04)
== END 2023-03-29 17:17 | disposition home or self-care (01) ==
LOC: SDC 06:14
PROVIDERS: ATTEND Internal Medicine Cardiovascular Disease
DX: I48.11 Longstanding persistent atrial fibrillation (principal); I25.10 Atherosclerotic heart disease of native coronary artery without angina pectoris; I48.92 Unspecified atrial flutter; R00.1 Bradycardia, unspecified; Z88.8 Allergy status to other drugs, medicaments and biological substances
CPT/HCPCS: 80048; 82962; 85027; 85347 ×2; 93005; 93623; 93655; 93656; 93657; J3010; 36416; C1732; C1759; C1760; C1894; J1200; J1644; J2704; J2720

== ENCOUNTER 2023-04-09 09:54 | Day surgery (SDC) | payer OTHER ==
[2023-04-08 13:53] VITALS: BMI 29.0
[2023-04-09] MEDS ORDERED: Lidocaine 1% PF 5 ML VIAL ONE (11:58)
[2023-04-09] MEDS ORDERED: PROPOFOL 200 MG/20 ML VIAL ONE (11:58)
== END 2023-04-09 13:46 | disposition home or self-care (01) ==
LOC: SDC 09:54
PROVIDERS: ATTEND Internal Medicine Cardiovascular Disease
PROC: 5A2204Z Restoration of Cardiac Rhythm, Single (ICD-10-PCS; principal; 2023-04-09)
DX: I48.92 Unspecified atrial flutter (principal); I48.11 Longstanding persistent atrial fibrillation; J98.4 Other disorders of lung; T46.2X5A Adverse effect of other antidysrhythmic drugs, initial encounter; I25.10 Atherosclerotic heart disease of native coronary artery without angina pectoris; I73.9 Peripheral vascular disease, unspecified; I10 Essential (primary) hypertension; E11.9 Type 2 diabetes mellitus without complications; Z87.891 Personal history of nicotine dependence; R53.83 Other fatigue; R53.81 Other malaise; Z88.8 Allergy status to other drugs, medicaments and biological substances; Z79.01 Long term (current) use of anticoagulants; Z91.048 Other nonmedicinal substance allergy status
CPT/HCPCS: 92960; 93005; 93010; J2704

== ENCOUNTER 2023-04-17 13:47 | Inpatient (IN) | payer OTHER ==
[2023-04-17] MEDS ORDERED: Metoprolol Tartrate 5 MG/5 ML VIAL ONE (13:59)
[2023-04-17 14:23] LABS: #Basophils 0.1 thou/uL (0.0-0.2); #Monocytes 0.5 thou/uL (0.11-0.59); #Neutrophils 4.2 thou/uL (1.40-6.50); %Basophils 0.7 % (0.0-1.0); %Eosinophils 0.6 % (0.0-10.0); %Monocytes 7.2 % (0.0-10.0); %Neutrophils 58.9 % (42.0-75.0); Hematocrit 43.6 % (42.0-52.0); Hemoglobin 14.3 g/dL (14.0-18.0); Mean Corpuscular HGB CONC 32.8 g/dL (32.0-36.0); Mean Corpuscular Hemoglobin 30.8 pg (27.0-31.0); Mean Platelet Volume 9.2 fL (7.4-10.4); Platelet Count 223 10x3/uL (130-400); RBC Distribution Width 18.9 % (11.5-14.5); Red Blood Cell (RBC) Count 4.64 mill/uL (4.70-6.10); White Blood Cell (WBC) Count 7.2 10x3/uL (4.8-10.8)
[2023-04-17 14:43] LABS: ALT (SGPT) 60 U/L (8-55); AST (SGOT) 91 U/L (5-34); Alkaline Phosphatase 154 U/L (40-110); Anion Gap 18 mmol/L (10-20); BUN (Urea Nitrogen) 30 mg/dL (8.4-25.7); Bilirubin, Total 1.7 mg/dL (0.2-1.2); Calc. Creatinine Clearance 0 mL/min (70-130); Calcium 8.5 mg/dL (7.8-10.44); Carbon Dioxide 19 mmol/L (23-31); Chloride 105 mmol/L (98-107); Estimated GFR 34; Globulin 3.1 g/dL (2.4-3.5); Glucose 118 mg/dL (83-110); Lipase 32 U/L (8-78); Magnesium 2.1 mg/dL (1.6-2.6); Potassium 4.9 mmol/L (3.5-5.1); Protein, Total 7.1 g/dL (5.8-8.1); Sodium 137 mmol/L (136-145)
[2023-04-17 14:45] LABS: Troponin I 0.064 ng/mL (< 0.028)
[2023-04-17 17:00] VITALS: BMI 29.3
[2023-04-17 17:54] LABS: Troponin I 0.066 ng/mL (< 0.028)
[2023-04-17] MEDS ORDERED: Dextrose 5% in Water 1,000 ML IV PRN (18:42)
[2023-04-17] MEDS ORDERED: Dextrose 50% Abboject 50 ML SYRINGE SLOW IVP PRN (18:42)
[2023-04-17] MEDS ORDERED: Glucagon 1 MG/ML KIT IM PRN (18:42)
[2023-04-17] MEDS ORDERED: HumaLOG 300 UNITS/3 ML VIAL SC PRN ×2 (18:42)
[2023-04-17] MEDS: Lactated Ringer's 1,000 ML IV SCH (18:52)
[2023-04-17 20:34] LABS: Troponin I 0.062 ng/mL (< 0.028)
[2023-04-17] MEDS: Metoprolol Tartrate 25 MG TAB PO SCH (20:41)
[2023-04-17] MEDS: Apixaban 5 MG TAB PO SCH (20:42)
[2023-04-17] MEDS: Fish Oil 1,000 MG CAP PO SCH (20:44)
[2023-04-17] MEDS: Cholecalciferol 1,000 UNITS (25 MCG) TAB PO SCH (20:46)
[2023-04-17] MEDS ORDERED: Fish Oil 1,000 MG CAP PO SCH (21:00)
[2023-04-18] MEDS: Lactated Ringer's 1,000 ML IV SCH ×3 (03:29→18:22)
[2023-04-18 05:14] LABS: #Basophils 0.1 thou/uL (0.0-0.2); #Eosinphils 0.1 thou/uL (0.0-0.7); #Monocytes 0.7 thou/uL (0.11-0.59); #Neutrophils 3.4 thou/uL (1.40-6.50); %Basophils 0.8 % (0.0-1.0); %Eosinophils 1.4 % (0.0-10.0); %Lymphocytes 35.7 % (21.0-51.0); %Monocytes 10.1 % (0.0-10.0); %Neutrophils 51.7 % (42.0-75.0); Hematocrit 39.8 % (42.0-52.0); Hemoglobin 12.9 g/dL (14.0-18.0); Mean Corpuscular HGB CONC 32.4 g/dL (32.0-36.0); Mean Corpuscular Hemoglobin 30.4 pg (27.0-31.0); Mean Corpuscular Volume 93.6 fl (78.0-98.0); Mean Platelet Volume 9.1 fL (7.4-10.4); Platelet Count 187 10x3/uL (130-400); Red Blood Cell (RBC) Count 4.25 mill/uL (4.70-6.10); White Blood Cell (WBC) Count 6.6 10x3/uL (4.8-10.8)
[2023-04-18 05:44] LABS: ALT (SGPT) 102 U/L (8-55); AST (SGOT) 148 U/L (5-34); Albumin 3.4 g/dL (3.4-4.8); Alkaline Phosphatase 139 U/L (40-110); Anion Gap 12 mmol/L (10-20); BUN (Urea Nitrogen) 30 mg/dL (8.4-25.7); Bilirubin, Total 1.3 mg/dL (0.2-1.2); Calc. Creatinine Clearance 45 mL/min (70-130); Calcium 8.3 mg/dL (7.8-10.44); Carbon Dioxide 21 mmol/L (23-31); Chloride 107 mmol/L (98-107); Estimated GFR 42; Globulin 2.8 g/dL (2.4-3.5); Glucose 60 mg/dL (83-110); Potassium 4.6 mmol/L (3.5-5.1); Protein, Total 6.2 g/dL (5.8-8.1); Sodium 135 mmol/L (136-145)
[2023-04-18] MEDS: Furosemide 40 MG TAB PO SCH (08:39)
[2023-04-18] MEDS: CO Q-10 CAPSULE 100 MG PO SCH (08:39)
[2023-04-18] MEDS: Magnesium Oxide 400 MG TAB PO SCH (08:39)
[2023-04-18] MEDS: Aspirin 325 MG TAB PO SCH (08:39)
[2023-04-18] MEDS: Ezetimibe 10 MG TAB PO SCH (08:39)
[2023-04-18] MEDS: Cholecalciferol 1,000 UNITS (25 MCG) TAB PO SCH ×2 (08:39→20:36)
[2023-04-18] MEDS: Apixaban 5 MG TAB PO SCH ×2 (08:39→20:36)
[2023-04-18] MEDS: Metoprolol Tartrate 25 MG TAB PO SCH ×2 (08:40→20:36)
[2023-04-18] MEDS: Losartan 25 MG TAB PO SCH (08:40)
[2023-04-18] MEDS: Fish Oil 1,000 MG CAP PO SCH ×2 (08:40→20:36)
[2023-04-18] MEDS ORDERED: CYANOCOBALAMIN PO SCH (09:00)
[2023-04-18] MEDS ORDERED: Potassium Chloride 20 MEQ TAB PO PRN (09:00)
[2023-04-18] MEDS ORDERED: FOLIC AC PO SCH (09:00)
[2023-04-18] MEDS ORDERED: VIT B6 PO SCH (09:00)
[2023-04-18] MEDS: Insulin Glargine 30 UNITS/0.3 ML VIAL SC SCH (09:45)
[2023-04-19] MEDS: Lactated Ringer's 1,000 ML IV SCH ×4 (03:34→20:16)
[2023-04-19 07:31] LABS: Anion Gap 12 mmol/L (10-20); BUN (Urea Nitrogen) 27 mg/dL (8.4-25.7); Calc. Creatinine Clearance 47 mL/min (70-130); Calcium 8.3 mg/dL (7.8-10.44); Carbon Dioxide 23 mmol/L (23-31); Chloride 104 mmol/L (98-107); Estimated GFR 44; Glucose 120 mg/dL (83-110); Potassium 4.2 mmol/L (3.5-5.1); Sodium 135 mmol/L (136-145)
[2023-04-19 08:36] LABS: ALT (SGPT) 86 U/L (8-55); AST (SGOT) 73 U/L (5-34); Albumin 3.1 g/dL (3.4-4.8); Alkaline Phosphatase 133 U/L (40-110); Bilirubin, Direct 0.7 mg/dL (0.1-0.3); Bilirubin, Total 1.4 mg/dL (0.2-1.2); Protein, Total 5.9 g/dL (5.8-8.1)
[2023-04-19] MEDS: Ezetimibe 10 MG TAB PO SCH (09:54)
[2023-04-19] MEDS: Cholecalciferol 1,000 UNITS (25 MCG) TAB PO SCH ×2 (09:54→20:15)
[2023-04-19] MEDS: Apixaban 5 MG TAB PO SCH ×2 (09:54→20:15)
[2023-04-19] MEDS: Cyanocobalamin (Vitamin B-12) 1,000 MCG TAB PO SCH (09:54)
[2023-04-19] MEDS: Aspirin 325 MG TAB PO SCH (09:54)
[2023-04-19] MEDS: Fish Oil 1,000 MG CAP PO SCH ×2 (09:54→20:15)
[2023-04-19] MEDS: Metoprolol Tartrate 25 MG TAB PO SCH (09:55)
[2023-04-19] MEDS: pyridOXINE 50 MG (B6) TAB PO SCH (09:55)
[2023-04-19] MEDS: Losartan 25 MG TAB PO SCH (09:55)
[2023-04-19] MEDS: Magnesium Oxide 400 MG TAB PO SCH (09:55)
[2023-04-19] MEDS: Folic Acid 1 MG TAB PO SCH (09:55)
[2023-04-19] MEDS: Furosemide 40 MG TAB PO SCH (09:55)
[2023-04-19] MEDS: CO Q-10 CAPSULE 100 MG PO SCH (09:56)
[2023-04-19] MEDS: Insulin Glargine 30 UNITS/0.3 ML VIAL SC SCH (10:01)
[2023-04-19] MEDS: Metoprolol Tartrate 50 MG TAB PO SCH (20:16)
[2023-04-20] MEDS: Lactated Ringer's 1,000 ML IV SCH ×3 (00:39→09:21)
[2023-04-20] MEDS: Apixaban 5 MG TAB PO SCH ×4 (07:25→20:06)
[2023-04-20 08:32] LABS: ALT (SGPT) 62 U/L (8-55); AST (SGOT) 37 U/L (5-34); Albumin 3.3 g/dL (3.4-4.8); Alkaline Phosphatase 129 U/L (40-110); Anion Gap 14 mmol/L (10-20); BUN (Urea Nitrogen) 20 mg/dL (8.4-25.7); Calc. Creatinine Clearance 47 mL/min (70-130); Calcium 8.6 mg/dL (7.8-10.44); Carbon Dioxide 23 mmol/L (23-31); Chloride 103 mmol/L (98-107); Estimated GFR 43; Globulin 2.8 g/dL (2.4-3.5); Glucose 103 mg/dL (83-110); Potassium 4.2 mmol/L (3.5-5.1); Protein, Total 6.1 g/dL (5.8-8.1); Sodium 136 mmol/L (136-145)
[2023-04-20] MEDS: Aspirin 325 MG TAB PO SCH (09:07)
[2023-04-20] MEDS: CO Q-10 CAPSULE 100 MG PO SCH (09:07)
[2023-04-20] MEDS: pyridOXINE 50 MG (B6) TAB PO SCH (09:08)
[2023-04-20] MEDS: Cholecalciferol 1,000 UNITS (25 MCG) TAB PO SCH ×2 (09:08→20:05)
[2023-04-20] MEDS: Ezetimibe 10 MG TAB PO SCH (09:12)
[2023-04-20] MEDS: Folic Acid 1 MG TAB PO SCH (09:13)
[2023-04-20] MEDS: Metoprolol Tartrate 50 MG TAB PO SCH ×2 (09:13→20:06)
[2023-04-20] MEDS: Cyanocobalamin (Vitamin B-12) 1,000 MCG TAB PO SCH (09:14)
[2023-04-20] MEDS: Insulin Glargine 30 UNITS/0.3 ML VIAL SC SCH (09:14)
[2023-04-20] MEDS: Magnesium Oxide 400 MG TAB PO SCH (09:14)
[2023-04-20] MEDS: Losartan 25 MG TAB PO SCH (09:14)
[2023-04-20] MEDS: Fish Oil 1,000 MG CAP PO SCH ×2 (09:14→20:06)
[2023-04-20] MEDS: Furosemide 40 MG TAB PO SCH (09:14)
[2023-04-21 07:03] LABS: ALT (SGPT) 51 U/L (8-55); AST (SGOT) 28 U/L (5-34); Albumin 3.4 g/dL (3.4-4.8); Alkaline Phosphatase 124 U/L (40-110); Anion Gap 11 mmol/L (10-20); BUN (Urea Nitrogen) 20 mg/dL (8.4-25.7); Bilirubin, Total 1.2 mg/dL (0.2-1.2); Calc. Creatinine Clearance 47 mL/min (70-130); Calcium 8.9 mg/dL (7.8-10.44); Carbon Dioxide 28 mmol/L (23-31); Chloride 100 mmol/L (98-107); Estimated GFR 43; Glucose 132 mg/dL (83-110); Potassium 4.2 mmol/L (3.5-5.1); Protein, Total 6.4 g/dL (5.8-8.1); Sodium 135 mmol/L (136-145)
[2023-04-21] MEDS: Folic Acid 1 MG TAB PO SCH (08:03)
[2023-04-21] MEDS: Ezetimibe 10 MG TAB PO SCH (08:03)
[2023-04-21] MEDS: CO Q-10 CAPSULE 100 MG PO SCH (08:03)
[2023-04-21] MEDS: Aspirin 325 MG TAB PO SCH (08:03)
[2023-04-21] MEDS: Losartan 25 MG TAB PO SCH (08:03)
[2023-04-21] MEDS: Furosemide 40 MG TAB PO SCH (08:04)
[2023-04-21] MEDS: Metoprolol Tartrate 50 MG TAB PO SCH ×2 (08:04→20:03)
[2023-04-21] MEDS: Cholecalciferol 1,000 UNITS (25 MCG) TAB PO SCH ×2 (08:04→20:03)
[2023-04-21] MEDS: Magnesium Oxide 400 MG TAB PO SCH (08:04)
[2023-04-21] MEDS: Cyanocobalamin (Vitamin B-12) 1,000 MCG TAB PO SCH (08:04)
[2023-04-21] MEDS: Fish Oil 1,000 MG CAP PO SCH ×2 (08:04→20:03)
[2023-04-21] MEDS: pyridOXINE 50 MG (B6) TAB PO SCH (08:04)
[2023-04-22 05:04] LABS: #Eosinphils 0.1 thou/uL (0.0-0.7); #Monocytes 0.7 thou/uL (0.11-0.59); #Neutrophils 2.5 thou/uL (1.40-6.50); %Basophils 0.7 % (0.0-1.0); %Eosinophils 2.2 % (0.0-10.0); %Lymphocytes 38.7 % (21.0-51.0); %Monocytes 12.3 % (0.0-10.0); %Neutrophils 45.6 % (42.0-75.0); Hematocrit 38.8 % (42.0-52.0); Hemoglobin 13.2 g/dL (14.0-18.0); Mean Corpuscular Hemoglobin 31.1 pg (27.0-31.0); Mean Corpuscular Volume 91.3 fl (78.0-98.0); Mean Platelet Volume 8.9 fL (7.4-10.4); Platelet Count 138 10x3/uL (130-400); RBC Distribution Width 18.6 % (11.5-14.5); Red Blood Cell (RBC) Count 4.25 mill/uL (4.70-6.10); White Blood Cell (WBC) Count 5.5 10x3/uL (4.8-10.8)
[2023-04-22 05:10] LABS: Anion Gap 10 mmol/L (10-20); BUN (Urea Nitrogen) 23 mg/dL (8.4-25.7); Calc. Creatinine Clearance 42 mL/min (70-130); Calcium 8.9 mg/dL (7.8-10.44); Carbon Dioxide 31 mmol/L (23-31); Chloride 99 mmol/L (98-107); Estimated GFR 38; Glucose 149 mg/dL (83-110); Sodium 136 mmol/L (136-145)
[2023-04-22] MEDS ORDERED: Midazolam HCl 2 mg/2 ml Vial ONE (06:29)
[2023-04-22] MEDS ORDERED: fentaNYL 50 mcg/mL 1 mL Vial ONE ×3 (06:29→10:25)
[2023-04-22] MEDS ORDERED: Lidocaine 1% (PF) 30 ML VIAL ONE (06:30)
[2023-04-22] MEDS ORDERED: CEFAZOLIN 1 GM VIAL ONE (06:30)
[2023-04-22] MEDS ORDERED: CEFAZOLIN 2 GM VIAL ONE (06:30)
[2023-04-22] MEDS ORDERED: Gentamicin 80 MG/2 ML VIAL ONE (06:30)
[2023-04-22] MEDS ORDERED: Atropine Sulfate 1 mg/1 ml Vial ONE (09:06)
[2023-04-22] MEDS ORDERED: Flecainide 50 MG TAB PO SCH (11:15)
[2023-04-22] MEDS ORDERED: Acetaminophen/Codeine 30-300mg Tablet PO PRN ×2 (11:15)
[2023-04-22] MEDS: Cholecalciferol 1,000 UNITS (25 MCG) TAB PO SCH ×2 (11:41→20:43)
[2023-04-22] MEDS: Aspirin 325 MG TAB PO SCH (11:41)
[2023-04-22] MEDS: Folic Acid 1 MG TAB PO SCH (11:42)
[2023-04-22] MEDS: Ezetimibe 10 MG TAB PO SCH (11:42)
[2023-04-22] MEDS: Fish Oil 1,000 MG CAP PO SCH ×2 (11:42→20:43)
[2023-04-22] MEDS: Cyanocobalamin (Vitamin B-12) 1,000 MCG TAB PO SCH (11:42)
[2023-04-22] MEDS: Metoprolol Tartrate 50 MG TAB PO SCH ×2 (11:43→20:43)
[2023-04-22] MEDS: Magnesium Oxide 400 MG TAB PO SCH (11:43)
[2023-04-22] MEDS: Losartan 25 MG TAB PO SCH (11:43)
[2023-04-22] MEDS: pyridOXINE 50 MG (B6) TAB PO SCH (11:43)
[2023-04-22] MEDS: Furosemide 40 MG TAB PO SCH (11:43)
[2023-04-22] MEDS: CO Q-10 CAPSULE 100 MG PO SCH (11:44)
[2023-04-22] MEDS ORDERED: Cephalexin 250 MG CAP PO SCH (12:00)
[2023-04-22] MEDS: Cephalexin 250 MG CAP PO SCH ×3 (13:30→23:53)
[2023-04-22] MEDS: CEFAZOLIN 2 GM in Sodium Chloride 0.9% 100 ML IVPB SCH ×2 (13:30→21:34)
[2023-04-22] MEDS: Flecainide 50 MG TAB PO SCH (20:43)
[2023-04-23 04:09] VITALS: TEMP 98.2
[2023-04-23] MEDS: Cephalexin 250 MG CAP PO SCH ×2 (05:46→12:48)
[2023-04-23] MEDS: Cholecalciferol 1,000 UNITS (25 MCG) TAB PO SCH (08:34)
[2023-04-23] MEDS: CO Q-10 CAPSULE 100 MG PO SCH (08:34)
[2023-04-23] MEDS: Aspirin 325 MG TAB PO SCH (08:34)
[2023-04-23] MEDS: Folic Acid 1 MG TAB PO SCH (08:35)
[2023-04-23] MEDS: Fish Oil 1,000 MG CAP PO SCH (08:35)
[2023-04-23] MEDS: Cyanocobalamin (Vitamin B-12) 1,000 MCG TAB PO SCH (08:36)
[2023-04-23] MEDS: Losartan 25 MG TAB PO SCH (08:36)
[2023-04-23] MEDS: Flecainide 50 MG TAB PO SCH (08:36)
[2023-04-23] MEDS: Ezetimibe 10 MG TAB PO SCH (08:36)
[2023-04-23] MEDS: Magnesium Oxide 400 MG TAB PO SCH (08:37)
[2023-04-23] MEDS: Furosemide 40 MG TAB PO SCH (08:37)
[2023-04-23] MEDS: Metoprolol Tartrate 50 MG TAB PO SCH (08:37)
[2023-04-23] MEDS: pyridOXINE 50 MG (B6) TAB PO SCH (08:38)
[2023-04-23 12:00] VITALS: BP 118/72
== END 2023-04-23 14:58 | disposition home or self-care (01) | DRG 243 ==
LOC: ERS 13:47 → 2SW 15:08 → OBSVTOIN 04-19 11:56
PROVIDERS: ADMIT Student in an Organized Health Care Education/Training Program; ATTEND Student in an Organized Health Care Education/Training Program
PROC: 0JH606Z Insertion of Pacemaker, Dual Chamber into Chest Subcutaneous Tissue and Fascia, Open Approach (ICD-10-PCS; principal; 2023-04-22)
PROC: 02H63JZ Insertion of Pacemaker Lead into Right Atrium, Percutaneous Approach (ICD-10-PCS; 2023-04-22)
PROC: 02HK3JZ Insertion of Pacemaker Lead into Right Ventricle, Percutaneous Approach (ICD-10-PCS; 2023-04-22)
DX: I48.19 Other persistent atrial fibrillation (principal); N17.9 Acute kidney failure, unspecified; I49.5 Sick sinus syndrome; I44.30 Unspecified atrioventricular block; N18.32 Chronic kidney disease, stage 3b; E11.22 Type 2 diabetes mellitus with diabetic chronic kidney disease; N40.0 Benign prostatic hyperplasia without lower urinary tract symptoms; E86.0 Dehydration; E78.5 Hyperlipidemia, unspecified; E11.649 Type 2 diabetes mellitus with hypoglycemia without coma; E80.6 Other disorders of bilirubin metabolism; I95.9 Hypotension, unspecified; N18.9 Chronic kidney disease, unspecified; I12.9 Hypertensive chronic kidney disease with stage 1 through stage 4 chronic kidney disease, or unspecified chronic kidney disease; R74.01 Elevation of levels of liver transaminase levels; I25.10 Atherosclerotic heart disease of native coronary artery without angina pectoris; Z98.890 Other specified postprocedural states; Z87.891 Personal history of nicotine dependence; Z79.899 Other long term (current) drug therapy; Z88.8 Allergy status to other drugs, medicaments and biological substances; Z79.4 Long term (current) use of insulin; Z79.84 Long term (current) use of oral hypoglycemic drugs
CPT/HCPCS: 33208; 36415; 36416; 71045; 76705; 80048; 80053; 80076; 83690; 83735; 83880; 84484; 85025; 93005; 93010; 96361; 96374; 96375; 99152; 99153; C1769; C1785; C1898; G0378; J0461; J0690; J1580; J1650; J1815; J2001; J2250; J3010; J3490; J7120; J7999

== ENCOUNTER 2024-01-24 09:26 | Day surgery (SDC) | payer OTHER ==
[2024-01-19 13:59] VITALS: BMI 32.1
[2024-01-19 14:34] LABS: Hematocrit 43.1 % (38.8-50.0); Hemoglobin 14.6 g/dL (13.5-17.5); Mean Corpuscular HGB CONC 33.9 g/dL (32.0-36.0); Mean Corpuscular Hemoglobin 29.6 pg (27.0-33.0); Mean Corpuscular Volume 87.4 fl (81.2-95.1); Mean Platelet Volume 8.9 fl (7.4-10.4); Platelet Count 183 10x3/uL (150-450); RBC Distribution Width 16.8 % (11.5-14.5); Red Blood Cell (RBC) Count 4.93 10x6/uL (4.32-5.72); White Blood Cell (WBC) Count 5.6 10x3/uL (3.5-10.5)
[2024-01-19 14:37] LABS: INR-International Normal Ratio 1.1; PTT 31.3 sec (22.0-33.0); Prothrombin Time 12.2 sec (9.5-12.1)
[2024-01-19 14:42] LABS: Anion Gap 12 mmol/L (10-20); BUN (Urea Nitrogen) 17 mg/dL (8.4-25.7); Calc. Creatinine Clearance 59 mL/min (70-130); Calcium 8.8 mg/dL (7.8-10.44); Carbon Dioxide 25 mmol/L (23-31); Chloride 102 mmol/L (98-107); Estimated GFR 53; Glucose 131 mg/dL (83-110); Potassium 4.4 mmol/L (3.5-5.1); Sodium 135 mmol/L (136-145)
[2024-01-24] MEDS ORDERED: Heparin 10,000 UNITS/ 10 ML VIAL ONE (10:59)
[2024-01-24] MEDS ORDERED: Protamine Sulfate 50 MG/5 ML VIAL ONE (10:59)
[2024-01-24] MEDS ORDERED: Heparin 25,000 units/D5W 500 ML ONE (11:00)
[2024-01-24] MEDS ORDERED: Isoproterenol 0.2 MG/1 ML AMP ONE (11:00)
[2024-01-24] MEDS ORDERED: PHENYLEPHRINE-NS 100 MCG/ML 10 ML SYRINGE ONE (12:54)
[2024-01-24] MEDS ORDERED: ePHEDrine Sulfate 50 MG/10 ML VIAL ONE (12:54)
[2024-01-24] MEDS ORDERED: PROPOFOL 200 MG/20 ML VIAL ONE (12:54)
[2024-01-24] MEDS ORDERED: Lidocaine 1% PF 5 ML VIAL ONE (12:54)
[2024-01-24] MEDS ORDERED: Rocuronium Bromide 10 MG/ML (10ML VIAL) ONE (12:54)
[2024-01-24] MEDS ORDERED: fentaNYL 50 mcg/mL 1 mL Vial ONE ×3 (12:55→17:36)
[2024-01-24] MEDS ORDERED: SUGAMMADEX SODIUM 200 MG/2 ML VIAL ONE (15:39)
[2024-01-24] MEDS ORDERED: hydrALAZINE 20 MG/ML VIAL ONE (16:03)
== END 2024-01-24 19:12 | disposition home or self-care (01) ==
LOC: SDC 09:26
PROVIDERS: ATTEND Internal Medicine Cardiovascular Disease
PROC: 02583ZZ Destruction of Conduction Mechanism, Percutaneous Approach (ICD-10-PCS; principal; 2024-01-24)
PROC: 4A027FZ Measurement of Cardiac Rhythm, Via Natural or Artificial Opening (ICD-10-PCS; 2024-01-24)
PROC: 4A0274Z Measurement of Cardiac Electrical Activity, Via Natural or Artificial Opening (ICD-10-PCS; 2024-01-24)
DX: I48.11 Longstanding persistent atrial fibrillation (principal); I48.4 Atypical atrial flutter; I48.0 Paroxysmal atrial fibrillation; I25.10 Atherosclerotic heart disease of native coronary artery without angina pectoris; I73.9 Peripheral vascular disease, unspecified; I10 Essential (primary) hypertension; E11.9 Type 2 diabetes mellitus without complications; Z87.891 Personal history of nicotine dependence; Z79.899 Other long term (current) drug therapy; Z79.4 Long term (current) use of insulin; Z88.8 Allergy status to other drugs, medicaments and biological substances; Z91.048 Other nonmedicinal substance allergy status; I65.29 Occlusion and stenosis of unspecified carotid artery; Z95.0 Presence of cardiac pacemaker; Z98.890 Other specified postprocedural states; Z86.79 Personal history of other diseases of the circulatory system
CPT/HCPCS: 80048; 82962; 85027; 85347 ×2; 85610; 85730; 93005; 93623; 93655; 93656; C1732 ×2; C1759; C1760; C1884; C1893; C1894; J0360; J3010; 36416; 93010; 93462; 93653; 93662; J1644; J2704; J2720

== ENCOUNTER 2024-01-29 10:06 | Emergency (ER) | payer OTHER ==
[2024-01-29 11:14] LABS: #Basophils 0.04 10x3/uL (0.0-0.2); %Basophils 0.6 % (0.0-1.0); %Eosinophils 1.1 % (0.0-10.0); %Monocytes 10.8 % (0.0-10.0); %Neutrophils 65.8 % (42.0-75.0); Hematocrit 42.2 % (42.0-52.0); Hemoglobin 14.2 g/dL (14.0-18.0); Mean Corpuscular HGB CONC 33.6 g/dL (32.0-36.0); Mean Corpuscular Hemoglobin 28.9 pg (27.0-31.0); Mean Corpuscular Volume 85.8 fL (78.0-98.0); Platelet Count 158 10x3/uL (130-400); RBC Distribution Width 17.9 % (11.5-14.5); Red Blood Cell (RBC) Count 4.92 mill/uL (4.70-6.10)
[2024-01-29 11:28] LABS: ALT (SGPT) 16 U/L (8-55); AST (SGOT) 22 U/L (5-34); Albumin 3.3 g/dL (3.4-4.8); Alkaline Phosphatase 110 U/L (40-110); Anion Gap 12 mmol/L (10-20); BUN (Urea Nitrogen) 26 mg/dL (8.4-25.7); Bilirubin, Total 2.4 mg/dL (0.2-1.2); Calc. Creatinine Clearance 0 mL/min (70-130); Carbon Dioxide 28 mmol/L (23-31); Chloride 97 mmol/L (98-107); Estimated GFR 48; Glucose 145 mg/dL (83-110); Potassium 4.8 mmol/L (3.5-5.1); Protein, Total 7.3 g/dL (5.8-8.1); Sodium 132 mmol/L (136-145)
== END 2024-01-29 13:01 | disposition home or self-care (01) ==
LOC: ERS 10:06
DX: L76.32 Postprocedural hematoma of skin and subcutaneous tissue following other procedure (principal); E11.22 Type 2 diabetes mellitus with diabetic chronic kidney disease; N18.9 Chronic kidney disease, unspecified; I97.190 Other postprocedural cardiac functional disturbances following cardiac surgery; I48.19 Other persistent atrial fibrillation; Z79.4 Long term (current) use of insulin
CPT/HCPCS: 36415; 80053; 85025; 93005; 93923

== ENCOUNTER 2025-08-23 14:44 | Emergency (ER) | payer MEDICARE ==
[2025-08-23 16:21] LABS: #Basophils 0.03 10x3/uL (0.0-0.2); #Eosinophils 0.16 10x3/uL (0.0-0.7); #Monocytes 0.49 10x3/uL (0.11-0.59); #Neutrophils 2.90 10x3/uL (1.40-6.50); %Basophils 0.5 % (0.0-1.0); %Eosinophils 2.8 % (0.0-10.0); %Lymphocytes 36.8 % (21.0-51.0); %Monocytes 8.6 % (0.0-10.0); %Neutrophils 50.9 % (42.0-75.0); Hematocrit 39.9 % (42.0-52.0); Hemoglobin 14.1 g/dL (14.0-18.0); Mean Corpuscular Hemoglobin 31.4 pg (27.0-31.0); Mean Corpuscular Volume 88.9 fL (78.0-98.0); Platelet Count 150 10x3/uL (130-400); Red Blood Cell (RBC) Count 4.49 mill/uL (4.70-6.10); White Blood Cell (WBC) Count 5.70 10x3/uL (4.8-10.8)
[2025-08-23 16:41] LABS: ALT (SGPT) 31 U/L (Less than 45); AST (SGOT) 32 U/L (11-34); Albumin 3.8 g/dL (3.1-4.5); Alkaline Phosphatase 114 U/L (40-110); Anion Gap 12 mmol/L (10-20); BUN (Urea Nitrogen) 30 mg/dL (8.4-25.7); Bilirubin, Total 0.7 mg/dL (0.3-1.2); Calc. Creatinine Clearance 0 mL/min (70-130); Calcium 9.1 mg/dL (7.8-10.44); Carbon Dioxide 25 mmol/L (23-31); Chloride 107 mmol/L (98-107); Globulin 3.0 g/dL (2.4-3.5); Glucose 78 mg/dL (83-110); Potassium 4.4 mmol/L (3.5-5.1); Sodium 140 mmol/L (136-145)
== END 2025-08-23 17:43 | disposition home or self-care (01) ==
LOC: ERS 14:44
DX: I95.9 Hypotension, unspecified (principal); E11.9 Type 2 diabetes mellitus without complications; Z79.4 Long term (current) use of insulin; Z79.899 Other long term (current) drug therapy
CPT/HCPCS: 80053; 84484; 85025; 93005; 99285